=== PATIENT | male | born 1985 | race African-American/Black ===

== ENCOUNTER 2017-11-11 06:23 | Emergency (ER) | payer MEDICAID ==
[~2017-11-11] VITALS: Ht 177.8 cm; Wt 122.5 kg
[2017-11-11 06:33] VITALS: BP_SYST 141
[2017-11-11] MEDS ORDERED: ONDANSETRON HCL 4 MG/2 ML VIAL IVP ONE (06:45)
[2017-11-11] MEDS ORDERED: NACL 0.9% 1,000 ML IV ONE (06:45)
[2017-11-11] MEDS ORDERED: ONDANSETRON 4 MG ODT TAB PO ONE (06:45)
[2017-11-11] MEDS ORDERED: METOCLOPRAMIDE HCL 10 MG/2 ML VIAL IVP ONE (07:30)
[2017-11-11 08:12] VITALS: BP_SYST 135
== END 2017-11-11 08:12 | disposition home or self-care (01) ==
LOC: SED 06:23
DX: K52.9 Noninfective gastroenteritis and colitis, unspecified (principal); J45.909 Unspecified asthma, uncomplicated
CPT/HCPCS: 96361; 96374; 96375; 99284; J2405; J2765; J7030

== ENCOUNTER 2018-05-25 22:34 | Emergency (ER) | payer MEDICAID ==
[~2018-05-25] VITALS: Ht 177.8 cm; Wt 117.9 kg
[2018-05-25 23:10] VITALS: BP_SYST 140
[2018-05-26 02:07] VITALS: BP_SYST 136
== END 2018-05-26 02:07 | disposition home or self-care (01) ==
LOC: SED 22:34
DX: R51 Headache (principal); M54.2 Cervicalgia; J45.909 Unspecified asthma, uncomplicated; V50.5XXA Driver of pick-up truck or van injured in collision with pedestrian or animal in traffic accident, initial encounter; Y93.89 Activity, other specified; Y92.411 Interstate highway as the place of occurrence of the external cause; Y99.8 Other external cause status
CPT/HCPCS: 99282